=== PATIENT | female | born 1975 | race Caucasian/White ===

== ENCOUNTER 2016-09-04 12:31 | Emergency (ER) | payer OTHER ==
[~2016-09-04] VITALS: Ht 160 cm; Wt 108.9 kg
[~2016-09-04 12:31] MED LIST: ALBU0.63 NEB; CARV3.122 PO; CYCL1DRO EACHEYE; DICL25CA PO; DULO60CA6 PO; FLUT12AE IH; LORA10TA3 PO; MECL25TA3 PO; MELO-150 PO; METH4TAB6 PO; MONT10TA9 PO; OMEP40CA5 PO; ONDA4TAB12 PO; PRED-299 PO; PREG100C PO; SPIR50TA2 PO; SUCR1TAB PO; TOPI50TA4 PO; TRAZ300T2 PO
[2016-09-04 12:48] VITALS: BP 133/83
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
[2016-09-04] MEDS ORDERED: CYCL10TA2 PO (14:15)
== END 2016-09-04 14:37 | disposition home or self-care (01) ==
LOC: ER 12:31
DX: S16.1XXA Strain of muscle, fascia and tendon at neck level, initial encounter (principal); J45.909 Unspecified asthma, uncomplicated; M79.7 Fibromyalgia; G47.00 Insomnia, unspecified; G47.30 Sleep apnea, unspecified; Z88.2 Allergy status to sulfonamides; Z91.041 Radiographic dye allergy status; V89.2XXA Person injured in unspecified motor-vehicle accident, traffic, initial encounter; Y92.413 State road as the place of occurrence of the external cause; Y93.89 Activity, other specified; Y99.8 Other external cause status
CPT/HCPCS: 72125; 99284-25

== ENCOUNTER → 2018-02-27 | Outpatient (CLI) | payer OTHER ==
[~2018-02-27] MED LIST changes: +CYCL10TA2 PO; -MELO-150 PO; +MELO15TA23 PO; -SPIR50TA2 PO; +SPIR50TA4 PO; -TOPI50TA4 PO; +TOPI50TA8 PO
--- NOTE | 2018-02-27 08:59 | KCIC ---
MRI Cervical Spine Without Contrast History: Cervicalgia, neck and body aches for years Technique: Multiplanar, multi sequential noncontrast MR imaging was performed of the cervical spine. Comparison: None Findings: Cervical vertebral body stature and AP alignment are maintained. Cervical cord caliber is within normal limits without focal signal abnormality. Intervertebral disc spaces are overall adequate, very mild disc desiccation such as C3-4 and C4-C5. There is no significant marrow edema. There is no significant abnormality of the cervical medullary junction. There is straightening of the more superior cervical spine. There is a small focus of nonspecific marrow signal abnormality of the clivus although this may be due to more prominent vessel. C2-C3: Neural foramina and spinal canal are adequate. C3-C4: Neural foramina and spinal canal are adequate. C4-C5: Spinal canal and neural foramina are adequate. There is mild facet degenerative change. C5-C6: Spinal canal and the neural foramina are adequate. There is mild to moderate facet hypertrophic change bilaterally. C6-C7: There is mild facet hypertrophic change. Neural foramina and spinal canal are adequate. C7-T1: Neural foramina and spinal canal are adequate. Impression: 1. There is no cervical spinal stenosis or neural foramina compromise. There is multilevel facet degenerative change. Electronically signed by: Phillip Allen MD (02/27/2018 8:56 AM) [facility]
== END | disposition home or self-care (01) ==
LOC: KCIC MRI 07:44
PROVIDERS: ATTEND Physician Assistant Medical
DX: M47.892 Other spondylosis, cervical region (principal); J45.909 Unspecified asthma, uncomplicated; Z68.42 Body mass index [BMI] 45.0-49.9, adult; Z90.710 Acquired absence of both cervix and uterus; Z88.2 Allergy status to sulfonamides; Z82.49 Family history of ischemic heart disease and other diseases of the circulatory system; Z80.0 Family history of malignant neoplasm of digestive organs; Z80.3 Family history of malignant neoplasm of breast
CPT/HCPCS: 72141

== ENCOUNTER → 2018-03-02 | Outpatient (CLI) | payer OTHER ==
--- NOTE | 2018-03-03 10:45 | SLEEP ---
DATE OF STUDY: 03/02/2018 ATTENDING PHYSICIAN: Dr. David Oswald. The patient is a 42-year-old who weighs 230 pounds with a BMI of 40.7. The patient's [place] score was 24 suggesting severe subjective hypersomnia. The patient underwent home sleep study performed by [facility]. Total recording time was 502 minutes. During the night of study, the patient had 25 obstructive apneas, no central or mixed apneas and 7 hypopneas. The patient's apnea-hypopnea index with entire night was 3.8 per hour with a supine index of 5.5 per hour. EKG monitoring revealed mean heart rate of 58 beats per minute, no arrhythmias observed. Oximetry study revealed an average oxygen saturation of 95% with the lowest of 83%, which could be an artifact. Only 0.1 minute were spent in oxygen saturation of less than 85% and only 0.3 minutes with oxygen saturation of less than 90%. IMPRESSION: 1. No clinically significant sleep disordered breathing. The patient's AHI for the entire night was 3.8 per hour. 2. No clinically significant nocturnal hypoxia. RECOMMENDATIONS: 1. The patient's complain of severe subjective hypersomnia is out of proportion to the polysomnographic findings There was no evidence of sleep disordered breathing. Consider other etiologies of hypersomnia such as narcolepsy or idiopathic hypersomnia and if clinically indicated, consider doing multiple sleep latency tests. 2. Weight loss is advised. 3. Avoid KEY ENTRY OPERATOR depressants. 4. Caution regarding driving until the patient's hypersomnia is resolved with the above recommendations. TROY MENDIETA MD DR: ASA/jamie JOB#: [id number] / [id number] MARGARET
== END | disposition home or self-care (01) ==
LOC: RT 07:10
PROVIDERS: ATTEND Internal Medicine Pulmonary Disease
DX: G47.33 Obstructive sleep apnea (adult) (pediatric) (principal); J45.909 Unspecified asthma, uncomplicated; Z90.710 Acquired absence of both cervix and uterus; Z68.42 Body mass index [BMI] 45.0-49.9, adult; Z88.2 Allergy status to sulfonamides; Z82.49 Family history of ischemic heart disease and other diseases of the circulatory system; Z91.041 Radiographic dye allergy status; Z80.0 Family history of malignant neoplasm of digestive organs; Z80.3 Family history of malignant neoplasm of breast
CPT/HCPCS: G0399

== ENCOUNTER → 2019-04-23 | Outpatient (CLI) | payer MEDICAID, OTHER ==
[~2019-04-23] MED LIST changes: +CARV3.1210 PO; -CARV3.122 PO; +MONT10TA49 PO; -MONT10TA9 PO; +OMEP40CA45 PO; -OMEP40CA5 PO
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
== END | disposition home or self-care (01) ==
LOC: MRI 10:00
PROVIDERS: ATTEND Orthopaedic Surgery Sports Medicine
DX: M22.42 Chondromalacia patellae, left knee (principal); R06.00 Dyspnea, unspecified
CPT/HCPCS: 73721

== ENCOUNTER 2019-05-04 17:39 | Inpatient (IN) | payer MEDICAID ==
[~2019-05-04] VITALS: Ht 160 cm; Wt 106.8 kg
[2019-05-04 20:40] VITALS: BP 140/82
--- NOTE | 2019-05-04 21:18 | NUR ---
pt arrived to room 207 per ems cart. Pt assisted to bed with standby assist. Pt vs obtained and stable heart monitor applied to pt.Assessment completed vss poc explained will resume care and continue to monitor pt call light in reach will resume care. Pt reminded to call prior to getting oob. Call placed to Dr. Bermeo for further admit orders.
[2019-05-04] MEDS ORDERED: TIZA4TAB2 PO (21:32)
--- NOTE | 2019-05-04 21:42 | NUR ---
returned call orders received.
[2019-05-04] MEDS ORDERED: MORPHINE SULFATE 2 MG/ML VIAL. IV PRN (21:45)
[2019-05-04] MEDS ORDERED: ACETAMINOPHEN 325 MG TABLET. PO PRN (21:45)
[2019-05-04] MEDS ORDERED: diphenhydrAMINE HCL 25 MG CAPSULE PO PRN (21:45)
[2019-05-04] MEDS ORDERED: HYDROcodone/APAP 5/325MG 1 TAB TABLET PO PRN (21:45)
[2019-05-04] MEDS ORDERED: ALBUTEROL SULFATE 2.5 MG/3 ML NEBU. NEB PRN (22:30)
[2019-05-04] MEDS ORDERED: MECLIZINE HCL 12.5 MG TABLET. PO PRN (22:30)
[2019-05-04] MEDS: PANTOPRAZOLE 40 MG TABLET.DR. PO SCH (22:41)
[2019-05-04] MEDS: TOPIRAMATE 25 MG TABLET. PO SCH (22:41)
[2019-05-04] MEDS: CYCLOBENZAPRINE 10 MG TABLET. PO SCH (22:41)
[2019-05-04] MEDS: IV NORMAL SALINE 1000ML BAG 1,000 ML IV SCH (22:42)
[2019-05-04] MEDS: DICLOFENAC SODIUM 25 MG TABLET.DR PO SCH (22:42)
[2019-05-04] MEDS: PREGABALIN 50 MG CAPSULE PO SCH (22:42)
[2019-05-04] MEDS: MONTELUKAST SODIUM 10 MG TABLET. PO SCH (22:42)
[2019-05-04 23:51] VITALS: BP 120/56
[2019-05-05] VITALS (8 sets, daily range): BP systolic 103–145; BP diastolic 62–92
[2019-05-05 04:35] LABS: HEMOGLOBIN 11.8 g/dL (12.0-15.5); WHITE BLOOD COUNT 4.8 x10^3/uL (4.0-11.0)
[2019-05-05 04:41] LABS: PROTHROMBIN TIME PATIENT 13.2 SEC (11.7-14.0)
[2019-05-05 04:54] LABS: CALCIUM 8.2 mg/dL (8.5-10.1); CREATININE 0.6 mg/dL (0.6-1.0); GFR 110.2; MAGNESIUM 1.9 mg/dL (1.8-2.4); POTASSIUM 3.6 mmol/L (3.5-5.1)
[2019-05-05] MEDS: IV NORMAL SALINE 1000ML BAG 1,000 ML IV SCH ×2 (08:00→17:14)
--- NOTE | 2019-05-05 08:03 | PDOC1 ---
History and Physical Date of Admission Date of Admission DATE: 05/05/19 TIME: 08:01 Identification/Chief Complaint Chief Complaint Dizziness Source Source: Chart review, Patient History of Present Illness History of Present Illness Ms Whitman is a 43-year-old female w/ PMHx Fibromyalgia?, rosacea, valvular heart disease and tachyarrhythmia who presents with dizziness and lightheadedness while at work. 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 She felt tingling all extremities nauseated and as though she would pass out. Symptoms lasted upwards of an hour prior to contacting EMS. On EMS arrival, the patient was noted to be bradycardic with heart rate the mid 40s. Patient states she had a similar episode 2 days ago which lasted proximally 1 hour. Patient did not seek medical attention at that time. On ED arrival, the patient's heart rate and cerebral ranging from the 30s to the 90s. Patient's currently on low dose of Coreg which she is been on for approximately the past 2 years. No recent illnesses. Denies fever chills, chest pain, abdominal pain. No vomiting or diarrhea. 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 EKG: Sinus bradycardia, rate 50s. Chest x-ray: No acute cardiopulmonary disease Past Medical History Cardiovascular: Other Pulmonary: Asthma, Other GI: Other Heme/Onc: No pertinent hx Hepatobiliary: No pertinent hx Psych: No pertinent hx Musculoskeletal: No pain, Other Rheumatologic: Fibromyalgia Infectious disease: No pertinent hx Renal/: No pertinent hx Endocrine: No pertinent hx Past Surgical History Past Surgical History: , Hysterectomy, Other Family History Family History: Coronary Artery Disease Social History Smoke: No ALCOHOL: none Drugs: None Current Medications Current Medications Current Medications Sodium Chloride 1,000 ml @ 100 mls/hr Q10H IV Last administered on 05/04/19at 22:42; Start 05/04/19 at 22:00 Acetaminophen (Tylenol) 650 mg PRN Q6HRS PRN PO MILD PAIN 1-3; Start 05/04/19 at 21:45 Morphine Sulfate (Morphine Sulfate) 2 mg PRN Q2HR PRN IV SEVERE PAIN 7-10; Start 05/04/19 at 21:45 Acetaminophen/ Hydrocodone Bitart (Lortab 5/325) 1 tab PRN Q6HRS PRN PO MODERATE PAIN 4-6; Start 05/04/19 at 21:45 Diphenhydramine HCl (Benadryl) 25 mg PRN QHS PRN PO INSOMNIA; Start 05/04/19 at 21:45 Cyclobenzaprine HCl (Flexeril) 10 mg TID PO Last administered on 05/04/19at 22:41; Start 05/04/19 at 23:00 Cyclosporine (Restasis) 1 drop BID OU ; Start 05/05/19 at 09:00 Montelukast Sodium (Singulair) 10 mg HS PO Last administered on 05/04/19at 22:42; Start 05/04/19 at 23:00 Sucralfate (Carafate) 1 gm BID PO ; Start 05/05/19 at 09:00 Albuterol Sulfate (Ventolin Neb Soln) 2.5 mg PRN Q4HRS PRN NEB SHORTNESS OF BREATH; Start 05/04/19 at 22:30 Diclofenac Sodium (Voltaren) 25 mg BID PO Last administered on 05/04/19at 22:42; Start 05/04/19 at 23:00 Duloxetine HCl (Cymbalta) 60 mg BID PO ; Start 05/05/19 at 09:00 Budesonide (Pulmicort) 0.5 mg RTBID NEB ; Start 05/05/19 at 08:00 Cetirizine HCl (ZyrTEC) 10 mg DAILY PO ; Start 05/05/19 at 09:00 Meclizine HCl (Antivert) 25 mg PRN TID PRN PO DIZZINESS; Start 05/04/19 at 22:30 Pantoprazole Sodium (Protonix) 40 mg QHS PO Last administered on 05/04/19at 22:41; Start 05/04/19 at 23:00 Pregabalin (Lyrica) 100 mg TID PO Last administered on 05/04/19at 22:42; Start 05/04/19 at 23:00 Spironolactone (Aldactone) 50 mg DAILY PO ; Start 05/05/19 at 09:00 Topiramate (Topamax) 50 mg BID PO Last administered on 05/04/19at 22:41; Start 10/29/19 at 23:00 Potassium Chloride (Klor-Con) 40 meq 1X ONCE PO ; Start 05/05/19 at 08:00; Stop 05/05/19 at 08:01; Status UNV Magnesium Sulfate/ Dextrose 100 ml @ 100 mls/hr 1X ONCE IV ; Start 05/05/19 at 08:00; Stop 05/05/19 at 08:59; Status UNV Active Scripts Active Cyclobenzaprine Hcl 10 Mg Tablet 10 Mg PO TID Reported Tizanidine Hcl 4 Mg Tablet 2 Tab PO PRN Q8HRS PRN Omeprazole 40 Mg Capsule.dr 1 Cap PO HS Montelukast Sodium Tablet (Montelukast Sodium) 10 Mg Tablet 1 Tab PO HS Topiramate 50 Mg Tablet 1 Tab PO BID Trazodone Hcl 300 Mg Tablet 1 Tab PO QHS Sucralfate 1 Gm Tablet 1 Gm PO BID Albuterol Sulfate Neb Soln (Albuterol Sulfate) 0.63 Mg/3 Ml Vial.neb 0.63 Mg NEB PRN Q4HRS PRN Carvedilol (Carvedilol) 3.125 Mg Tablet 1 Tab PO BID Lyrica (Pregabalin) 100 Mg Capsule 1 Cap PO TID Loratadine 10 Mg Tablet 1 Tab PO DAILY Flovent 110MCG Hfa (Fluticasone Propionate) 12 Gm Aer.w.adap 2 Puff IH BID Zipsor (Diclofenac Potassium) 25 Mg Capsule 25 Mg PO BID Restasis (Cyclosporine) 1 Each Droperette 1 Drop EACHEYE BID Cymbalta (Duloxetine Hcl) 60 Mg Capsule. 1 Cap PO BID Meclizine Hcl 25 Mg Tablet 1 Tab PO PRN TID Ondansetron Odt (Ondansetron) 4 Mg Tab.rapdis 1 Tab PO PRN Q6HRS PRN Meloxicam 15 Mg Tablet 1 Tab PO DAILY Spironolactone 50 Mg Tablet 1 Tab PO DAILY Allergies Allergies: Coded Allergies: Iodinated Contrast Media (Verified Allergy, Intermediate, "turned red all over", 01/30/16) Sulfa (Sulfonamide Antibiotics) (Verified Allergy, Intermediate, 01/30/16) fexofenadine (Verified Allergy, Intermediate, 05/04/19) ROS General: YES: Fatigue, Malaise; No: Chills, Night Sweats, Appetite, Other PSYCHOLOGICAL ROS: YES: Anxiety; No: Behavioral Disorder, Concentration difficultie, Decreased libido, Depression, Disorientation, Hallucinations, Hostility, Irritablity, Memory difficulties, Mood Swings, Obsessive thoughts, Physical abuse, Sexual abuse, Sleep disturbances, Suicidal ideation, Other Eyes: No Blurry vision, No Decreased vision, No Double vision, No Dry eyes, No Excessive tearing, No Eye Pain, No Itchy Eyes, No Loss of vision, No Photophobia, No Scotomata, No Uses contacts, No Uses glasses, No Other HEENT: YES: Heacaches; No: Visual Changes, Hearing change, Nasal congestion, Nasal discharge, Oral lesions, Sinus pain, Sore Throat, Epistaxis, Sneezing, Snoring, Tinnitus, Vertigo, Vocal changes, Other ALLERGY AND IMMUNOLOGY: No: Hives, Insect Bite Sensitivity, Itchy/Watery Eyes, Nasal Congestion, Post Nasal Drip, Seasonal Allergies, Other Hematological and Lymphatic: No: Bleeding Problems, Blood Clots, Blood Transfusions, Brusing, Night Sweats, Pallor, Swollen Lymph Nodes, Other ENDOCRINE: No: Breast Changes, Galactorrhea, Hair Pattern Changes, Hot Flashes, Malaise/lethargy, Mood Swings, Palpitations, Polydipsia/polyuria, Skin Changes, Temperature Intolerance, Unexpected Weight Changes, Other Breast: No New/Changing Breast Lumps, No Nipple changes, No Nipple discharge, No Other Respiratory: No: Cough, Hemoptysis, Orthopnea, Pleuritic Pain, Shortness of breath, SOB with excertion, Sputum Changes, Stridor, Tachypnea, Wheezing, Other Cardiovascular: yes Chest Pain, yes Palpitations; No Orthopnea, No Paroxysmal Noc. Dyspnea, No Edema, No Lt Headedness, No Other Gastrointestinal: No Nausea, No Vomiting, No Abdominal Pain, No Diarrhea, No Constipation, No Melena, No Hematochezia, No Other Genitourinary: YES Hematuria; No Dysuria, No Frequency, No Incontinence, No Retention, No Discharge, No Urgency, No Pain, No Flank Pain, No Other, No , No , No , No , No , No , No Musculoskeletal: Yes Joint Stiffness, Yes Joint Swelling, Yes Muscle Pain, Yes Muscular Weakness; No Gait Disturbance, No Joint Pain, No Pain In:, No Swelling In:, No Other Neurological: No Behavorial Changes, No Bowel/Bladder ControlChng, No Confusion, No Dizziness, No Gait Disturbance, No Headaches, No Impaired Coord/balance, No Memory Loss, No Numbness/Tingling, No Seizures, No Speech Problems, No Tremors, No Visual Changes, No Weakness, No Other Skin: Yes Rash; No Dry Skin, No Eczema, No Hair Changes, No Lumps, No Mole Changes, No Mottling, No Nail Changes, No Pruritus, No Skin Lesion Changes, No Other, No Acne Physical Exam General: Alert, Oriented X3, Cooperative, No acute distress HEENT: Atraumatic, PERRLA, EOMI, Mucous membr. moist/pink, Other (Malar rash) Lungs: Clear to auscultation, Normal air movement Heart: other (Jose) Abdomen: Normal bowel sounds, Soft, No tenderness, No hepatosplenomegaly, No masses Rectal Exam: not examined Extremities: No clubbing, No cyanosis, No edema, Normal pulses, No tenderness/swelling Skin: No breakdown, No significant lesion Neuro: Normal gait, Normal speech, Strength at 5/5 X4 ext, Normal tone, Sensation intact, Cranial nerves 3-12 NL, Reflexes 2+ Psych/Mental Status: Mental status NL, Mood NL Vitals Vitals Vital Signs Date Time Temp Pulse Resp B/P (MAP) Pulse Ox O2 Delivery O2 Flow Rate FiO2 05/05/19 03:23 98.3 67 16 103/62 (76) 97 Room Air 98.3 Labs Labs Laboratory Tests Test 05/05/19 03:35 White Blood Count 4.8 x10^3/uL (4.0-11.0) Hemoglobin 11.8 g/dL (12.0-15.5) Hematocrit 36.0 % (36.0-47.0) Platelet Count 167 x10^3/uL (140-400) Prothrombin Time 13.2 SEC (11.7-14.0) Prothromb Time International Ratio 1.0 (0.8-1.1) Sodium Level 145 mmol/L (136-145) Potassium Level 3.6 mmol/L (3.5-5.1) Chloride Level 112 mmol/L (98-107) Carbon Dioxide Level 23 mmol/L (21-32) Anion Gap 10 (6-14) Blood Urea Nitrogen 16 mg/dL (7-20) Creatinine 0.6 mg/dL (0.6-1.0) Estimated GFR (Cockcroft-Gault) 110.2 Glucose Level 77 mg/dL (70-99) Calcium Level 8.2 mg/dL (8.5-10.1) Magnesium Level 1.9 mg/dL (1.8-2.4) Thyroid Stimulating Hormone (TSH) 2.454 uIU/mL (0.358-3.74) Laboratory Tests Test 05/05/19 03:35 White Blood Count 4.8 x10^3/uL (4.0-11.0) Hemoglobin 11.8 g/dL (12.0-15.5) Hematocrit 36.0 % (36.0-47.0) Platelet Count 167 x10^3/uL (140-400) Prothrombin Time 13.2 SEC (11.7-14.0) Prothromb Time International Ratio 1.0 (0.8-1.1) Sodium Level 145 mmol/L (136-145) Potassium Level 3.6 mmol/L (3.5-5.1) Chloride Level 112 mmol/L (98-107) Carbon Dioxide Level 23 mmol/L (21-32) Anion Gap 10 (6-14) Blood Urea Nitrogen 16 mg/dL (7-20) Creatinine 0.6 mg/dL (0.6-1.0) Estimated GFR (Cockcroft-Gault) 110.2 Glucose Level 77 mg/dL (70-99) Calcium Level 8.2 mg/dL (8.5-10.1) Magnesium Level 1.9 mg/dL (1.8-2.4) Thyroid Stimulating Hormone (TSH) 2.454 uIU/mL (0.358-3.74) VTE Prophylaxis Ordered VTE Prophylaxis Devices: No VTE Pharmacological Prophylaxi: Yes Assessment/Plan Assessment/Plan A/P: Symptomatic bradycardia - reason for admission. Holding her coreg. Will monitor on telemetry. Echo. Cardiology following Palpitations - pre-existing Dizziness - likely multifactorial from medications as well as bradycardia Presyncope - Multifactorial, possibly 2/2 bradycardia Prolonged QTc 514 - will keep on telemetry, avoid QT prolonging agents HTN - controlled Hx of Migraine Chest pain - unlikely ACS. Recent Coronary CT unremarkable. ?Fibromyalgia - on medications with no improvement. 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 Her rash is impressive as well as her other symptoms, based on age should have testing to r/o SLE Weakness - will ambulate FEN - Full liquid diet PPX - lovenox FULL CODE Dispo - inpatient BAUDILIO MCCONNELL MD May 05, 2019 08:03
[2019-05-05] MEDS: cycloSPORINE 0.05% OPHTH DROPERETTE. OU SCH ×2 (08:31→21:00)
[2019-05-05] MEDS ORDERED: POTASSIUM CHLORIDE 20 MEQ TABLET.ER. PO ONE (09:00)
[2019-05-05] MEDS ORDERED: MAGNESIUM SULFATE 1GM 100 ML IV ONE (09:00)
[2019-05-05] MEDS: DULoxetine HCL 30 MG CAPSULE.DR PO SCH ×2 (09:28→22:17)
[2019-05-05] MEDS: PREGABALIN 50 MG CAPSULE PO SCH ×3 (09:28→22:18)
[2019-05-05] MEDS: DICLOFENAC SODIUM 25 MG TABLET.DR PO SCH ×2 (09:28→22:17)
[2019-05-05] MEDS: SPIRONOLACTONE 25 MG TABLET PO SCH (09:28)
[2019-05-05] MEDS: CYCLOBENZAPRINE 10 MG TABLET. PO SCH ×3 (09:28→21:00)
[2019-05-05] MEDS: SUCRALFATE 1 GM TABLET. PO SCH ×2 (09:28→22:16)
[2019-05-05] MEDS: TOPIRAMATE 25 MG TABLET. PO SCH ×2 (09:28→22:17)
[2019-05-05] MEDS: CETIRIZINE HCL 10 MG TABLET. PO SCH (09:28)
--- NOTE | 2019-05-05 10:51 | PDOC2 ---
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 This occurred Friday and yesterday. Reports that she was standing up when this happened. Reports also of chest pressure, nausea and diaphoresis. Also with abdominal pain and tingling to her arms and legs. Reports that her firbormyalgia has not been controlled. She had coronary CT scan at yesterday which was unremarkable. She does take coreg and her HR was noted to be in the 40s when she was picked up by EMS. Initially she was at [facility] and transferred to [facility]. Also had complains of abdominal pain but currently no tenderness and no further symptoms since transferred. PAST MEDICAL HISTORY Past Medical History Cardiovascular: bradycardia Pulmonary: Asthma, COPD, [place] Neuro: Migraine GI: Other (morbid obesity) Heme/Onc: No pertinent hx Hepatobiliary: No pertinent hx Psych: No pertinent hx Musculoskeletal: No pain, Other (carpal tunnel) Rheumatologic: Fibromyalgia Infectious disease: No pertinent hx ENT: Sincusitis, Allergic Rhinitis Renal/: No pertinent hx Endocrine: No pertinent hx Dermatology: No pertinent hx PAST SURGICAL HISTORY Past Surgical History , Hysterectomy, Other (gastric bypass) FAMILY HISTORY Family History Coronary Artery Disease (father with MN in his 60s) SOCIAL HISTORY Smoke: No ALCOHOL: none Drugs: None Lives: with Family CURRENT MEDICATIONS CURRENT MEDICATIONS Current Medications Medications (Trade) Dose Ordered Sig/Marlyn Route PRN Reason Start Time Stop Time Status Last Admin Dose Admin Sodium Chloride 1,000 ml @ 100 mls/hr Q10H IV 05/04/19 22:00 05/05/19 08:00 Morphine Sulfate (Morphine Sulfate) 2 mg PRN Q2HR PRN IV SEVERE PAIN 7-10 05/04/19 21:45 05/05/19 08:01 Cyclobenzaprine HCl (Flexeril) 10 mg TID PO 05/04/19 23:00 05/05/19 09:28 Montelukast Sodium (Singulair) 10 mg HS PO 05/04/19 23:00 05/04/19 22:42 Sucralfate (Carafate) 1 gm BID PO 05/05/19 09:00 05/05/19 09:28 Diclofenac Sodium (Voltaren) 25 mg BID PO 05/04/19 23:00 05/05/19 09:28 Duloxetine HCl (Cymbalta) 60 mg BID PO 05/05/19 09:00 05/05/19 09:28 Cetirizine HCl (ZyrTEC) 10 mg DAILY PO 05/05/19 09:00 05/05/19 09:28 Pantoprazole Sodium (Protonix) 40 mg QHS PO 05/04/19 23:00 05/04/19 22:41 Pregabalin (Lyrica) 100 mg TID PO 05/04/19 23:00 05/05/19 09:28 Spironolactone (Aldactone) 50 mg DAILY PO 05/05/19 09:00 05/05/19 09:28 Topiramate (Topamax) 50 mg BID PO 05/04/19 23:00 05/05/19 09:28 Potassium Chloride (Klor-Con) 40 meq 1X ONCE PO 05/05/19 09:00 05/05/19 09:01 DC 05/05/19 08:30 Magnesium Sulfate/ Dextrose 100 ml @ 100 mls/hr 1X ONCE IV 05/05/19 09:00 05/05/19 09:59 DC 05/05/19 08:30 ALLERGIES ALLERGIES: Coded Allergies: Iodinated Contrast Media (Verified Allergy, Intermediate, "turned red all over", 01/30/16) Sulfa (Sulfonamide Antibiotics) (Verified Allergy, Intermediate, 01/30/16) fexofenadine (Verified Allergy, Intermediate, 05/04/19) ROS Review of System 14 point ROS evaluated with pertinent positives noted per HPI PHYSICAL EXAM General: Alert, Oriented X3, Cooperative, No acute distress HEENT: Atraumatic, Mucous membr. moist/pink Lungs: Clear to auscultation, Normal air movement Heart: Regular rate (SR), Normal S1, Normal S2, No murmurs Abdomen: Soft, No tenderness Extremities: No cyanosis, No edema Skin: No breakdown, No significant lesion Neuro: Normal speech, Sensation intact Psych/Mental Status: Mental status NL, Mood NL MUSCULOSKELETAL: Osteoarthritic changes both hands VITALS/I&O VITALS/I&O: Vital Signs Date Time Temp Pulse Resp B/P (MAP) Pulse Ox O2 Delivery O2 Flow Rate FiO2 05/05/19 08:01 Room Air 05/05/19 07:00 98.1 57 18 145/66 (92) 98 98.1 I & O 05/04/19 05/04/19 05/05/19 15:00 23:00 07:00 Intake Total 0 ml 100 ml Output Total 325 ml Balance -325 ml 100 ml LABS Lab: Laboratory Tests Test 05/05/19 03:35 White Blood Count 4.8 x10^3/uL (4.0-11.0) Hemoglobin 11.8 g/dL (12.0-15.5) L Hematocrit 36.0 % (36.0-47.0) Platelet Count 167 x10^3/uL (140-400) Prothrombin Time 13.2 SEC (11.7-14.0) Prothrombin Time INR 1.0 (0.8-1.1) Sodium Level 145 mmol/L (136-145) Potassium Level 3.6 mmol/L (3.5-5.1) Chloride Level 112 mmol/L (98-107) H Carbon Dioxide Level 23 mmol/L (21-32) Anion Gap 10 (6-14) Blood Urea Nitrogen 16 mg/dL (7-20) Creatinine 0.6 mg/dL (0.6-1.0) Estimated GFR (Cockcroft-Gault) 110.2 Glucose Level 77 mg/dL (70-99) Calcium Level 8.2 mg/dL (8.5-10.1) L Magnesium Level 1.9 mg/dL (1.8-2.4) Thyroid Stimulating Hormone (TSH) 2.454 uIU/mL (0.358-3.74) Laboratory Tests 05/05/19 03:35 Laboratory Tests 05/05/19 03:[address] CORONARY CTA W CONTRAST 05/03/2019 INDICATIONS: 43-year-old female with past medical history significant for asthma and hypertension was been having left upper extremity pain. Patient underwent coronary CT angiogram for evaluation of possible coronary artery disease. PROCEDURAL DETAILS: 128 slice, dual source, computed tomography of the heart, without contrast material followed by contrast material and further sections, including cardiac gating and 3-D image postprocessing; cardiac structure and morphology, and computed tomographic angiography of the coronary arteries. FINDINGS: General Cardiac Morphology and Structure: The overall cardiac situs is normal. The diaphragms have normal inspiratory position. The pericardium is of normal thickness. There is no pericardial effusion present. There is epicardial fat present. The aortic valve is trileaflet valve. Aortic valve does not have any significant calcification.The mitral valve is structurally normal. Mitral leaflets appears to be normal without any significant thickening. The tricuspid valve and the pulmonic valve are not well visualized. The left ventricle has normal compaction pattern. The left ventricle is normal in size. There is no evidence of left ventricular hypertrophy. The interventricular septum measures 8 mm. The lateral wall measures 10 mm. The right ventricle also appears to be normal in size without right ventricular hypertrophy. Coronary Angiography: Left main: The left main coronary artery arises normally from the left coronary cusp. Left main coronary artery is a large caliber artery which further bifurcates into left anterior descending artery and left circumflex artery. Left main coronary artery is free of any calcified or soft plaques. Left anterior descending: The left anterior descending artery is medium to large caliber vessel which at least give origin to 2 diagonal branches. The left anterior descending artery and diagonal arteries are free of any calcific or significant noncalcific plaquing. Left circumflex: Left circumflex coronary artery arises from left main coronary artery. It is small caliber vessel. It gives origin to a tiny proximal first OM branch, before giving off a second small obtuse marginal branch and then terminating in the lateral wall. It is nondominant. There is no calcific plaquing or definite soft plaquing evident. Right coronary artery: The right coronary arteries originate from right coronary cusp and its free of any calcific plaques. The patient has a right dominant coronary system. It gives origin to PDA and PLV branches. The PDA branch is not well visualized but appears to be small in caliber. The PLV branch is medium in caliber and appears free of any soft plaquing or calcification. Atrial and Pulmonary Venous Anatomy: The interatrial septum is intact. There is no evidence of left atrial appendage thrombus. Visually, The right atrium and left atrium size is within normal limits. There are 2 right and 2 left-sided pulmonary veins draining into left atrium. Aorta and Pulmonary Arteries: The visualized portions of the thoracic aorta are without evidence of aneurysm, coarctation, or dissection. The ascending aorta measures 31 mm. The descending thoracic aorta measures 21 mm. There is no clinically significant calcific plaques in the visualized portion of ascending and descending thoracic aorta. The main pulmonary artery measures 22 mm. There are no filling defects in the proximal portions of the pulmonary arteries to suggest pulmonary embolism. Noncardiac Findings: Noncardiac findings are reported separately under the "Limited CT Chest Report" of the same date. IMPRESSION 1. Right dominant coronary artery circulation. Right and left coronary artery originates from their respective coronary cusps. Although the PDA branch of the RCA is small in caliber and not well visualized, no calcific or definite noncalcific plaquing is noted in any coronary arteries or its branches. 2. 2 right-sided and 2 left-sided pulmonary veins draining into left atrium. 3. Cardiac chambers size appears to be within normal limits. 4. No evidence of left atrial appendage thrombus. 5. Visualized portion of ascending and descending aorta are without any significant calcific plaquing, dissection or aneurysm. 6. Main pulmonary artery and its proximal portions are within normal limits without any evidence of filling defect suggestive of pulmonary embolism. ECHOCARDIOGRAM ECHOCARDIOGRAM <Conclusion> The left ventricle is normal size. Left ventricle systolic function is normal. The Ejection Fraction is 50-55%. There is no significant aortic valvular stenosis. Doppler and Color Flow revealed no significant aortic regurgitation. Doppler and Color Flow revealed trace mitral valve regurgitation. Doppler and Color Flow revealed mild tricuspid regurgitation. The PA pressure was estimated at 19 mmHg. DATE: 01/31/16 1722 ASSESSMENT/PLAN ASSESSMENT/PLAN 1. Presyncope: Multifactorial 2. Sinus bradycardia: Coreg contirbuting 3. Prolonged QTc: 514. 4. HTN: controlled 5. Hx of Migraine 5. Chest pain: doubt ACS. Recent Coronary CT unremarkable as noted above. This is likely from her uncontrolled fibromyalgia Recommendations. 1. Potentially her dizziness could be related to combination of her fibromyalgia medications namely neuronting, topiramate, norco, cymbalta, xanax 2. Consider discontinuing low dose celexa defer to PCP. Will stop coreg 3. Will repeat EKG. check orthostasis. Encouraged hydration adequacy. Will am bulate and note HR response 4. If no recent MCOT then will consider 5. TTE DENNISE TOURE MD 05/05/19 1708: CARDIAC CONSULT ASSESSMENT/PLAN ASSESSMENT/PLAN Pt. seen and examined. Agree with above MANAGER INCOME TAX note. Based on her presentation, EKG, exam and telemetry, no clear indication for pacemaker Stop coreg, consider decreasing multiple pain/anxiolytic meds and reassess on an outpt basis with an event monitor. Normal heart rate response. Supportive care. Echo wnl today. Ok to DC from CV standpoint SAMIRA CORDERO APRN May 05, 2019 10:51 DENNISE TOURE MD May 05, 2019 17:08
--- NOTE | 2019-05-05 11:25 | NUR ---
SS following for discharge planning. SS reviewed pt chart. Pt is from home and is currently on room air. SS will continue to follow for discharge planning.
--- NOTE | 2019-05-05 14:18 | EKG ---
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
--- NOTE | 2019-05-05 14:22 | CARD ---
MR#: [id number] Date of Study: 05/05/2019 Ordering Physician: SAMIRA CORDERO, Referring Physician: SAMIRA CORDERO, Tech: Ashley Aaron APPROVED REPORT EXAM: Two-dimensional and M-mode echocardiogram with Doppler and color Doppler. Other Information Quality : AverageHR: 56bpm Technically limited study due to body habitus. INDICATION Bradycardia 2D DIMENSIONS Left Atrium(2D)3.7 (1.6-4.0cm)IVSd1.1 (0.7-1.1cm) Aortic Root(2D)2.9 (2.0-3.7cm)LVDd4.8 (3.9-5.9cm) LVOT Diameter2.2 (1.8-2.4cm)PWd0.9 (0.7-1.1cm) LVDs2.7 (2.5-4.0cm)FS (%) 43.9 % SV81.1 mlLVEF(%)75.0 (>50%) Aortic Valve AoV Peak Nolan.138.4cm/sAoV VTI31.7cm AO Peak GR.7.7mmHgLVOT VTI 20.70cm AO Mean GR.4mmHg Mitral Valve MV E Diwbciji59.6cm/sMV DECEL [id number] MV A Gbvtxcjb51.5cm/sE/A Ratio1.4 TDI Lateral E' P. V11.65cm/sMedial E' P. V8.62cm/s E/Lateral E'5.9E/Medial E'8.0 Tricuspid Valve TR P. Xhouolvs846kg/sRAP [id number] TR Peak Gr.43oeBjVJSL73fwIz Pulmonary Vein S1 Qillepca19.3cm/sS2 Nocgwgpj62.91cm/s D2 Jdwpipjf42.9cm/sPVa [id number] LEFT VENTRICLE The left ventricle is normal size. There is borderline concentric left ventricular hypertrophy. The l eft ventricular systolic function is normal. The Ejection Fraction is 55-60%. There is normal LV segm ental wall motion. RIGHT VENTRICLE The right ventricle is normal size. There is normal right ventricular wall thickness. The right ventr icular systolic function is normal. ATRIA The left atrium size is normal. The right atrium size is normal. The interatrial septum is intact wit h no evidence for an atrial septal defect or patent foramen ovale as noted on 2-D or Doppler imaging. AORTIC VALVE The aortic valve is thickened but opens well. Doppler and Color Flow revealed no significant aortic r egurgitation. There is no significant aortic valvular stenosis. MITRAL VALVE The mitral valve is normal in structure and function. There is no evidence of mitral valve prolapse. There is no mitral valve stenosis. Doppler and Color Flow revealed no mitral valve regurgitation note d. TRICUSPID VALVE The tricuspid valve is normal in structure and function. Doppler and Color Flow revealed trace tricus pid regurgitation with an estimated PAP of 30 mmHg. There is no tricuspid valve stenosis. PULMONIC VALVE The pulmonary valve is normal in structure and function. Doppler and Color Flow revealed no pulmonic valvular regurgitation. GREAT VESSELS The aortic root is normal in size. The IVC is dilated. PERICARDIAL EFFUSION There is no evidence of significant pericardial effusion. Critical Notification Critical Value: No <Conclusion> The left ventricular systolic function is normal. The Ejection Fraction is 55-60%. There is normal LV segmental wall motion. Trace tricuspid regurgitation with an estimated PAP of 30 mmHg. There is no evidence of significant pericardial effusion. Signed by : Carl Erickson, Electronically Approved : 05/05/2019 14:22:09
[2019-05-05] MEDS: BUDESONIDE 0.5 MG/2 ML NEBU. NEB SCH (21:42)
[2019-05-05] MEDS: PANTOPRAZOLE 40 MG TABLET.DR. PO SCH (22:16)
[2019-05-05] MEDS: MONTELUKAST SODIUM 10 MG TABLET. PO SCH (22:19)
[2019-05-06 02:08] LABS: RHEUMATOID FACTOR <10.0 IU/mL (0.0-13.9)
[2019-05-06 02:55] VITALS: BP 123/80
[2019-05-06 07:00] VITALS: BP 140/84
[2019-05-06 07:36] LABS: CALCIUM 8.4 mg/dL (8.5-10.1); CREATININE 0.7 mg/dL (0.6-1.0); GFR 92.2
[2019-05-06] MEDS: BUDESONIDE 0.5 MG/2 ML NEBU. NEB SCH (08:10)
--- NOTE | 2019-05-06 08:16 | PDOC ---
PROGRESS NOTES Chief Complaint Chief Complaint A/P: Symptomatic bradycardia - reason for admission. Holding her coreg. Will monitor on telemetry. Echo. Cardiology following Palpitations - pre-existing Dizziness - likely multifactorial from medications as well as bradycardia Presyncope - Multifactorial, possibly 2/2 bradycardia Prolonged QTc 514 - will keep on telemetry, avoid QT prolonging agents HTN - controlled Hx of Migraine Chest pain - unlikely ACS. Recent Coronary CT unremarkable. ?Fibromyalgia - on medications with no improvement. 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 Her rash is impressive as well as her other symptoms, based on age should have testing to r/o SLE Weakness - will ambulate FEN - Full liquid diet PPX - lovenox FULL CODE Dispo - inpatient Echo - The left ventricular systolic function is normal. The Ejection Fraction is 55-60%. There is normal LV segmental wall motion. Trace tricuspid regurgitation with an estimated PAP of 30 mmHg. There is no evidence of significant pericardial effusion. History of Present Illness History of Present Illness Ms Whitman is a 43-year-old female w/ PMHx Fibromyalgia?, rosacea, valvular heart disease and tachyarrhythmia who presents with dizziness and lightheadedness while at work. 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 She felt tingling all extremities nauseated and as though she would pass out. Symptoms lasted upwards of an hour prior to contacting EMS. On EMS arrival, the patient was noted to be bradycardic with heart rate the mid 40s. Patient states she had a similar episode 2 days ago which lasted proximally 1 hour. Patient did not seek medical attention at that time. On ED arrival, the patient's heart rate and cerebral ranging from the 30s to the 90s. Patient's currently on low dose of Coreg which she is been on for approximately the past 2 years. No recent illnesses. Denies fever chills, chest pain, abdominal pain. No vomiting or diarrhea. 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 EKG: Sinus bradycardia, rate 50s. Chest x-ray: No acute cardiopulmonary disease Seen by cardiology, stopped her carvedilol and recommended to back off on lyrica, antihistamines, and muscle relaxants. After holding meds her HR normalized. She was able to ambulate well. Has plans for cardiac event monitor outpatient Vitals Vitals Vital Signs Date Time Temp Pulse Resp B/P (MAP) Pulse Ox O2 Delivery O2 Flow Rate FiO2 05/06/19 08:11 97 Room Air 05/06/19 02:55 97.9 58 18 123/80 (94) 97.9 Physical Exam General: Alert, Oriented X3, Cooperative, No acute distress Heart: Regular rate (SR), Normal S1, Normal S2, No murmurs Lungs: Clear Abdomen: Normal bowel sounds, Soft, No tenderness, No hepatosplenomegaly, No masses Extremities: No clubbing, No cyanosis, No edema, Normal pulses, No tenderness/swelling Skin: No breakdown, No significant lesion Labs LABS Laboratory Tests Test 05/05/19 15:20 05/06/19 06:25 Erythrocyte Sedimentation Rate 5 (0-25) C-Reactive Protein, Quantitative < 0.5 mg/L (0-3.3) Rheumatoid Factor <10.0 IU/mL (0.0-13.9) Sodium Level 141 mmol/L (136-145) Potassium Level 4.0 mmol/L (3.5-5.1) Chloride Level 108 mmol/L (98-107) Carbon Dioxide Level 24 mmol/L (21-32) Anion Gap 9 (6-14) Blood Urea Nitrogen 13 mg/dL (7-20) Creatinine 0.7 mg/dL (0.6-1.0) Estimated GFR (Cockcroft-Gault) 92.2 Glucose Level 81 mg/dL (70-99) Calcium Level 8.4 mg/dL (8.5-10.1) Magnesium Level 2.0 mg/dL (1.8-2.4) Assessment and Plan Assessmemt and Plan Problems Medical Problems: (1) Chest pain Status: Acute (2) Dizziness Status: Acute (3) Fibromyalgia Status: Chronic (4) HTN (hypertension) Status: Chronic (5) Palpitations Status: Acute (6) Pre-syncope Status: Acute (7) Symptomatic bradycardia Status: Acute (8) Weakness Status: Acute Comment Review of Relevant I have reviewed the following items june (where applicable) has been applied. Labs Laboratory Tests Test 05/05/19 03:35 05/05/19 15:20 05/06/19 06:25 White Blood Count 4.8 x10^3/uL (4.0-11.0) Hemoglobin 11.8 g/dL (12.0-15.5) Hematocrit 36.0 % (36.0-47.0) Platelet Count 167 x10^3/uL (140-400) Prothrombin Time 13.2 SEC (11.7-14.0) Prothromb Time International Ratio 1.0 (0.8-1.1) Sodium Level 145 mmol/L (136-145) 141 mmol/L (136-145) Potassium Level 3.6 mmol/L (3.5-5.1) 4.0 mmol/L (3.5-5.1) Chloride Level 112 mmol/L (98-107) 108 mmol/L (98-107) Carbon Dioxide Level 23 mmol/L (21-32) 24 mmol/L (21-32) Anion Gap 10 (6-14) 9 (6-14) Blood Urea Nitrogen 16 mg/dL (7-20) 13 mg/dL (7-20) Creatinine 0.6 mg/dL (0.6-1.0) 0.7 mg/dL (0.6-1.0) Estimated GFR (Cockcroft-Gault) 110.2 92.2 Glucose Level 77 mg/dL (70-99) 81 mg/dL (70-99) Calcium Level 8.2 mg/dL (8.5-10.1) 8.4 mg/dL (8.5-10.1) Magnesium Level 1.9 mg/dL (1.8-2.4) 2.0 mg/dL (1.8-2.4) Troponin I Quantitative < 0.017 ng/mL (0.000-0.055) Thyroid Stimulating Hormone (TSH) 2.454 uIU/mL (0.358-3.74) Erythrocyte Sedimentation Rate 5 (0-25) C-Reactive Protein, Quantitative < 0.5 mg/L (0-3.3) Rheumatoid Factor <10.0 IU/mL (0.0-13.9) Laboratory Tests Test 05/05/19 15:20 05/06/19 06:25 Erythrocyte Sedimentation Rate 5 (0-25) C-Reactive Protein, Quantitative < 0.5 mg/L (0-3.3) Rheumatoid Factor <10.0 IU/mL (0.0-13.9) Sodium Level 141 mmol/L (136-145) Potassium Level 4.0 mmol/L (3.5-5.1) Chloride Level 108 mmol/L (98-107) Carbon Dioxide Level 24 mmol/L (21-32) Anion Gap 9 (6-14) Blood Urea Nitrogen 13 mg/dL (7-20) Creatinine 0.7 mg/dL (0.6-1.0) Estimated GFR (Cockcroft-Gault) 92.2 Glucose Level 81 mg/dL (70-99) Calcium Level 8.4 mg/dL (8.5-10.1) Magnesium Level 2.0 mg/dL (1.8-2.4) Medications Current Medications Sodium Chloride 1,000 ml @ 100 mls/hr Q10H IV Last administered on 05/05/19at 08:00; Start 05/04/19 at 22:00; Stop 05/05/19 at 19:42; Status DC Acetaminophen (Tylenol) 650 mg PRN Q6HRS PRN PO MILD PAIN 1-3; Start 05/04/19 at 21:45 Morphine Sulfate (Morphine Sulfate) 2 mg PRN Q2HR PRN IV SEVERE PAIN 7-10 Last administered on 05/05/19at 08:01; Start 05/04/19 at 21:45 Acetaminophen/ Hydrocodone Bitart (Lortab 5/325) 1 tab PRN Q6HRS PRN PO MODERATE PAIN 4-6; Start 05/04/19 at 21:45 Diphenhydramine HCl (Benadryl) 25 mg PRN QHS PRN PO INSOMNIA; Start 05/04/19 at 21:45 Cyclobenzaprine HCl (Flexeril) 10 mg TID PO Last administered on 05/05/19at 14:09; Start 05/04/19 at 23:00 Cyclosporine (Restasis) 1 drop BID OU ; Start 05/05/19 at 09:00 Montelukast Sodium (Singulair) 10 mg HS PO Last administered on 05/05/19at 22:19; Start 05/04/19 at 23:00 Sucralfate (Carafate) 1 gm BID PO Last administered on 05/05/19at 22:16; Start 05/05/19 at 09:00 Albuterol Sulfate (Ventolin Neb Soln) 2.5 mg PRN Q4HRS PRN NEB SHORTNESS OF BREATH Last administered on 05/05/19 21:42; Start 05/04/19 at 22:30 Diclofenac Sodium (Voltaren) 25 mg BID PO Last administered on 05/05/19 22:17; Start 05/04/19 at 23:00 Duloxetine HCl (Cymbalta) 60 mg BID PO Last administered on 05/05/19 22:17; Start 05/05/19 at 09:00 Budesonide (Pulmicort) 0.5 mg RTBID NEB Last administered on 05/06/19 08:10; Start 05/05/19 at 08:00 Cetirizine HCl (ZyrTEC) 10 mg DAILY PO Last administered on 05/05/19 09:28; Start 05/05/19 at 09:00 Meclizine HCl (Antivert) 25 mg PRN TID PRN PO DIZZINESS; Start 05/04/19 at 22:30 Pantoprazole Sodium (Protonix) 40 mg QHS PO Last administered on 05/05/19 22:16; Start 05/04/19 at 23:00 Pregabalin (Lyrica) 100 mg TID PO Last administered on 05/05/19 22:18; Start 05/04/19 at 23:00 Spironolactone (Aldactone) 50 mg DAILY PO Last administered on 05/05/19 09:28; Start 05/05/19 at 09:00 Topiramate (Topamax) 50 mg BID PO Last administered on 05/05/19 22:17; Start 05/04/19 at 23:00 Potassium Chloride (Klor-Con) 40 meq 1X ONCE PO Last administered on 05/05/19 08:30; Start 05/05/19 at 09:00; Stop 05/05/19 at 09:01; Status DC Magnesium Sulfate/ Dextrose 100 ml @ 100 mls/hr 1X ONCE IV Last administered on 05/05/19 08:30; Start 05/05/19 at 09:00; Stop 05/05/19 at 09:59; Status DC Active Scripts Active Cyclobenzaprine Hcl 10 Mg Tablet 10 Mg PO TID Reported Tizanidine Hcl 4 Mg Tablet 2 Tab PO PRN Q8HRS PRN Omeprazole 40 Mg Capsule.dr 1 Cap PO HS Montelukast Sodium Tablet (Montelukast Sodium) 10 Mg Tablet 1 Tab PO HS Topiramate 50 Mg Tablet 1 Tab PO BID Trazodone Hcl 300 Mg Tablet 1 Tab PO QHS Sucralfate 1 Gm Tablet 1 Gm PO BID Albuterol Sulfate Neb Soln (Albuterol Sulfate) 0.63 Mg/3 Ml Vial.neb 0.63 Mg NEB PRN Q4HRS PRN Carvedilol (Carvedilol) 3.125 Mg Tablet 1 Tab PO BID Lyrica (Pregabalin) 100 Mg Capsule 1 Cap PO TID Loratadine 10 Mg Tablet 1 Tab PO DAILY Flovent 110MCG Hfa (Fluticasone Propionate) 12 Gm Aer.w.adap 2 Puff IH BID Zipsor (Diclofenac Potassium) 25 Mg Capsule 25 Mg PO BID Restasis (Cyclosporine) 1 Each Droperette 1 Drop EACHEYE BID Cymbalta (Duloxetine Hcl) 60 Mg Capsule.dr 1 Cap PO BID Meclizine Hcl 25 Mg Tablet 1 Tab PO PRN TID Ondansetron Odt (Ondansetron) 4 Mg Tab.rapdis 1 Tab PO PRN Q6HRS PRN Meloxicam 15 Mg Tablet 1 Tab PO DAILY Spironolactone 50 Mg Tablet 1 Tab PO DAILY Vitals/I & O Vital Sign - Last 24 Hours 05/05/19 05/05/19 05/05/19 05/05/19 11:00 11:05 11:10 15:00 Temp 98.1 98.3 98.1 98.3 Pulse 54 53 70 52 Resp 18 18 B/P (MAP) 121/64 (83) 130/90 (103) 130/92 (105) 137/73 (94) Pulse Ox 98 97 O2 Delivery Room Air Room Air 05/05/19 05/05/19 05/05/19 05/05/19 19:36 20:16 21:44 21:46 Temp 98.1 98.1 Pulse 58 Resp 16 B/P (MAP) 131/80 (97) Pulse Ox 99 97 97 O2 Delivery Room Air Room Air Room Air Room Air 05/05/19 05/06/19 05/06/19 22:25 02:55 08:11 Temp 98.0 97.9 98.0 97.9 Pulse 63 58 Resp 16 18 B/P (MAP) 117/68 (84) 123/80 (94) Pulse Ox 96 98 97 O2 Delivery Room Air Room Air Room Air Intake and Output 05/05/19 05/05/19 05/06/19 15:00 23:00 07:00 Intake Total 340 ml 1050 ml 350 ml Output Total 500 ml 500 ml 600 ml Balance -160 ml 550 ml -250 ml BAUDILIO MCCONNELL MD May 06, 2019 08:16
[2019-05-06] MEDS: CETIRIZINE HCL 10 MG TABLET. PO SCH (08:56)
[2019-05-06] MEDS: DICLOFENAC SODIUM 25 MG TABLET.DR PO SCH (08:56)
[2019-05-06] MEDS: SUCRALFATE 1 GM TABLET. PO SCH (08:57)
[2019-05-06] MEDS: PREGABALIN 50 MG CAPSULE PO SCH ×2 (08:57→14:04)
[2019-05-06] MEDS: DULoxetine HCL 30 MG CAPSULE.DR PO SCH (08:57)
[2019-05-06] MEDS: CYCLOBENZAPRINE 10 MG TABLET. PO SCH ×2 (08:57→14:04)
[2019-05-06] MEDS: TOPIRAMATE 25 MG TABLET. PO SCH (08:58)
[2019-05-06] MEDS: SPIRONOLACTONE 25 MG TABLET PO SCH (08:58)
[2019-05-06] MEDS: cycloSPORINE 0.05% OPHTH DROPERETTE. OU SCH (09:00)
[2019-05-06] MEDS ORDERED: FLU VAX QS 2019-20 (36MOS+)/PF 0.5 ML SYRINGE. VAX IM ONE (10:00)
[2019-05-06 11:13] VITALS: BP 122/65
--- NOTE | 2019-05-06 14:29 | PDOC3 ---
Discharge Summary Visit Information Date of Admission: May 04, 2019 Date of Discharge: May 06, 2019 Admitting Diagnosis: Symptomatic bradycardia Final Diagnosis Problems Medical Problems: (1) Chest pain Status: Acute (2) Dizziness Status: Acute (3) Fibromyalgia Status: Chronic (4) HTN (hypertension) Status: Chronic (5) Palpitations Status: Acute (6) Pre-syncope Status: Acute (7) Symptomatic bradycardia Status: Acute (8) Weakness Status: Acute Brief Hospital Course Allergies Allergies Coded Allergies Type Severity Reaction Last Updated Verified Iodinated Contrast Media Allergy Intermediate "turned red all over" 01/30/16 Yes Sulfa (Sulfonamide Antibiotics) Allergy Intermediate 01/30/16 Yes fexofenadine Allergy Intermediate 05/04/19 Yes Vital Signs Vital Signs Date Time Temp Pulse Resp B/P (MAP) Pulse Ox O2 Delivery O2 Flow Rate FiO2 05/06/19 11:13 98.2 62 18 122/65 (84) 97 Room Air 98.2 Lab Results Laboratory Tests Test 05/05/19 03:35 05/05/19 15:20 05/06/19 06:25 White Blood Count 4.8 x10^3/uL (4.0-11.0) Hemoglobin 11.8 g/dL (12.0-15.5) Hematocrit 36.0 % (36.0-47.0) Platelet Count 167 x10^3/uL (140-400) Prothrombin Time 13.2 SEC (11.7-14.0) Prothromb Time International Ratio 1.0 (0.8-1.1) Sodium Level 145 mmol/L (136-145) 141 mmol/L (136-145) Potassium Level 3.6 mmol/L (3.5-5.1) 4.0 mmol/L (3.5-5.1) Chloride Level 112 mmol/L (98-107) 108 mmol/L (98-107) Carbon Dioxide Level 23 mmol/L (21-32) 24 mmol/L (21-32) Anion Gap 10 (6-14) 9 (6-14) Blood Urea Nitrogen 16 mg/dL (7-20) 13 mg/dL (7-20) Creatinine 0.6 mg/dL (0.6-1.0) 0.7 mg/dL (0.6-1.0) Estimated GFR (Cockcroft-Gault) 110.2 92.2 Glucose Level 77 mg/dL (70-99) 81 mg/dL (70-99) Calcium Level 8.2 mg/dL (8.5-10.1) 8.4 mg/dL (8.5-10.1) Magnesium Level 1.9 mg/dL (1.8-2.4) 2.0 mg/dL (1.8-2.4) Troponin I Quantitative < 0.017 ng/mL (0.000-0.055) Thyroid Stimulating Hormone (TSH) 2.454 uIU/mL (0.358-3.74) Erythrocyte Sedimentation Rate 5 (0-25) C-Reactive Protein, Quantitative < 0.5 mg/L (0-3.3) Rheumatoid Factor <10.0 IU/mL (0.0-13.9) Laboratory Tests Test 05/05/19 15:20 05/06/19 06:25 Erythrocyte Sedimentation Rate 5 (0-25) C-Reactive Protein, Quantitative < 0.5 mg/L (0-3.3) Rheumatoid Factor <10.0 IU/mL (0.0-13.9) Sodium Level 141 mmol/L (136-145) Potassium Level 4.0 mmol/L (3.5-5.1) Chloride Level 108 mmol/L (98-107) Carbon Dioxide Level 24 mmol/L (21-32) Anion Gap 9 (6-14) Blood Urea Nitrogen 13 mg/dL (7-20) Creatinine 0.7 mg/dL (0.6-1.0) Estimated GFR (Cockcroft-Gault) 92.2 Glucose Level 81 mg/dL (70-99) Calcium Level 8.4 mg/dL (8.5-10.1) Magnesium Level 2.0 mg/dL (1.8-2.4) Brief Hospital Course Ms Whitman is a 43-year-old female w/ PMHx Fibromyalgia?, rosacea, valvular heart disease and tachyarrhythmia who presents with dizziness and lightheadedness while at work. Patient works in [employer] a [place] business when she began feeling dizzy lightheaded when standing and walking. She felt tingling all extremities nauseated and as though she would pass out. Symptoms lasted upwards of an hour prior to contacting EMS. On EMS arrival, the patient was noted to be bradycardic with heart rate the mid 40s. Patient states she had a similar episode 2 days ago which lasted proximally 1 hour. Patient did not seek medical attention at that time. On ED arrival, the patient's heart rate and cerebral ranging from the 30s to the 90s. Patient's currently on low dose of Coreg which she is been on for approximately the past 2 years. No recent illnesses. Denies fever chills, chest pain, abdominal pain. No vomiting or diarrhea. 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 EKG: Sinus bradycardia, rate 50s. Chest x-ray: No acute cardiopulmonary disease Seen by cardiology, stopped her carvedilol and recommended to back off on lyrica, antihistamines, and muscle relaxants. After holding meds her HR normalized. She was able to ambulate well. Has plans for cardiac event monitor outpatient A/P: Symptomatic bradycardia - reason for admission. Holding her coreg. Will monitor on telemetry. Echo. Cardiology following Palpitations - pre-existing Dizziness - likely multifactorial from medications as well as bradycardia Presyncope - Multifactorial, possibly 2/2 bradycardia Prolonged QTc 514 - will keep on telemetry, avoid QT prolonging agents HTN - controlled Hx of Migraine Chest pain - unlikely ACS. Recent Coronary CT unremarkable. ?Fibromyalgia - on medications with no improvement. 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 Her rash is impressive as well as her other symptoms, based on age should have testing to r/o SLE - negative CRP and sed rate, negative RF, SLE labs pending at time of d/c Weakness - will ambulate Echo - The left ventricular systolic function is normal. The Ejection Fraction is 55-60%. There is normal LV segmental wall motion. Trace tricuspid regurgitation with an estimated PAP of 30 mmHg. There is no evidence of significant pericardial effusion. Greater than 30 minutes spent on d/c Discharge Information Condition at Discharge: Improved Follow Up: Weeks (1) Disposition/Orders: D/C to Home Scheduled Cyclosporine (Restasis) 1 Each Droperette, 1 DROP EACHEYE BID, #60 Ref 3 (Reported) Entered as Reported by: LUKE BELTRAN on 01/30/162105 Last Action: Continued on 05/04/192223 by Bon Jansen Diclofenac Potassium (Zipsor) 25 Mg Capsule, 25 MG PO BID, (Reported) Entered as Reported by: LUKE BELTRAN on 01/30/162105 Last Action: Converted on 05/04/192223 by Bon Jansen Duloxetine Hcl (Cymbalta) 60 Mg Capsule.dr, 1 CAP PO BID, #90 Ref 3 (Reported) Entered as Reported by: LUKE BELTRAN on 01/30/162105 Last Action: Converted on 05/04/192223 by Bon Jansen Fluticasone Propionate (Flovent 110MCG Hfa) 12 Gm Aer.w.adap, 2 PUFF IH BID, #1 Ref 2 (Reported) Entered as Reported by: LUKE BELTRAN on 01/30/162105 Last Action: Converted on 05/04/192223 by Bon Jansen Loratadine (Loratadine) 10 Mg Tablet, 1 TAB PO DAILY, #30 Ref 5 (Reported) Entered as Reported by: LUKE BELTRAN on 01/30/162105 Last Action: Converted on 05/04/192223 by Bon Jansen Meclizine Hcl (Meclizine Hcl) 25 Mg Tablet, 1 TAB PO PRN TID, #30 (Reported) Entered as Reported by: LUKE BELTRAN on 01/30/162105 Last Action: Converted on 05/04/192223 by Bon Jansen Meloxicam (Meloxicam) 15 Mg Tablet, 1 TAB PO DAILY, #30 Ref 2 (Reported) Entered as Reported by: LUKE BELTRAN on 01/30/162105 Montelukast Sodium (Montelukast Sodium Tablet ) 10 Mg Tablet, 1 TAB PO HS, #30 Ref 5 (Reported) Entered as Reported by: LUKE BELTRAN on 01/30/162106 Last Action: Continued on 05/04/192224 by Bon Jansen Omeprazole (Omeprazole) 40 Mg Capsule.dr, 1 CAP PO HS, #30 Ref 3 (Reported) Entered as Reported by: LUKE BELTRAN on 01/30/162106 Last Action: Converted on 05/04/192224 by Bon Jansen Pregabalin (Lyrica) 100 Mg Capsule, 1 CAP PO TID, #90 Ref 2 (Reported) Entered as Reported by: LUKE BELTRAN on 01/30/162105 Last Action: Converted on 05/04/192223 by Bon Jansen Spironolactone (Spironolactone) 50 Mg Tablet, 1 TAB PO DAILY, #30 Ref 5 (Reported) Entered as Reported by: LUKE BELTRAN on 01/30/162105 Last Action: Converted on 05/04/192223 by Bon Jansen Sucralfate (Sucralfate) 1 Gm Tablet, 1 GM PO BID, (Reported) Entered as Reported by: LUKE BELTRAN on 01/30/162105 Last Action: Continued on 05/04/192223 by Bon Jansen Topiramate (Topiramate) 50 Mg Tablet, 1 TAB PO BID, #60 Ref 1 (Reported) Entered as Reported by: LUKE BELTRAN on 01/30/162106 Last Action: Converted on 05/04/192223 by Bon Jansen Trazodone Hcl (Trazodone Hcl) 300 Mg Tablet, 1 TAB PO QHS, #30 Ref 1 (Reported) Entered as Reported by: LUKE BELTRAN on 01/30/162105 Scheduled PRN Albuterol Sulfate (Albuterol Sulfate Neb Soln) 0.63 Mg/3 Ml Vial.neb, 0.63 MG NEB PRN Q4HRS PRN for SHORTNESS OF BREATH, Ref 0 (Reported) Entered as Reported by: LUKE BELTRAN on 01/30/162105 Last Action: Converted on 05/04/192223 by Bon Jansen Ondansetron (Ondansetron Odt) 4 Mg Tab.rapdis, 1 TAB PO PRN Q6HRS PRN for NAUSEA, #16 (Reported) Entered as Reported by: LUKE BELTRAN on 01/30/162105 Tizanidine Hcl (Tizanidine Hcl) 4 Mg Tablet, 2 TAB PO PRN Q8HRS PRN for MUSCLE SPASMS, #60 (Reported) Entered as Reported by: Bon Jansen on 05/04/192131 Last Action: New Order on 05/04/192131 by Bon Jansen Discontinued Medications Carvedilol (Carvedilol ) 3.125 Mg Tablet, 1 TAB PO BID, #60 Ref 3 (Reported) Entered as Reported by: LUKE BELTRAN on 01/30/162105 Cyclobenzaprine Hcl (Cyclobenzaprine Hcl) 10 Mg Tablet, 10 MG PO TID, #20 Prescribed by: JOSE ROBERTO JULES APRN on 09/04/16 1415 Last Action: Continued on 05/04/192224 by BAUDILIO Aaron MD May 06, 2019 14:29
--- NOTE | 2019-05-06 15:11 | NUR ---
Discharge Note: NICK ZHENG [address] [place] [address] Discharge instructions and discharge home medications reviewed with Patient and a copy given. All questions have been answered and understanding verbalized. The following instructions and handouts were given: Event monitoring Discontinued IV line Patient discharged to home with self care via private vehicle
[2019-05-07 12:10] LABS: ANTI-DS DNA <1 IU/mL (0-9); RNP ANTIBODY <0.2 AI (0.0-0.9)
[2019-05-07 16:10] LABS: ANA INTERP Negative (.)
== END 2019-05-06 15:00 | disposition home or self-care (01) | DRG 309 ==
LOC: 2 NORTH 20:25
PROVIDERS: ADMIT Internal Medicine; ATTEND Internal Medicine
DX: R00.1 Bradycardia, unspecified (principal); Z68.41 Body mass index [BMI] 40.0-44.9, adult; R07.89 Other chest pain; I10 Essential (primary) hypertension; G47.33 Obstructive sleep apnea (adult) (pediatric); J44.9 Chronic obstructive pulmonary disease, unspecified; M79.7 Fibromyalgia; Z82.49 Family history of ischemic heart disease and other diseases of the circulatory system; Z98.84 Bariatric surgery status; Z90.710 Acquired absence of both cervix and uterus; E66.01 Morbid (severe) obesity due to excess calories; G43.909 Migraine, unspecified, not intractable, without status migrainosus; Z88.2 Allergy status to sulfonamides; Z88.8 Allergy status to other drugs, medicaments and biological substances
CPT/HCPCS: 36415; 80048; 83735; 84443; 84484; 85027; 85610; 85651; 86038; 86140; 86235; 86431; 87801; 93005; 93306; 94640; J2270; J3475; J7030; J7613; J7626; G0378

== ENCOUNTER → 2020-01-20 | Outpatient (CLI) | payer MEDICAID ==
[~2020-01-20] MED LIST changes: +MECL-75 PO; -MECL25TA3 PO; +TIZA4TAB2 PO
--- NOTE | 2020-01-20 12:18 | CARD ---
MR#: [id number] Date of Study: 01/20/2020 Ordering Physician: DENNISE TOURE, Referring Physician: DENNISE TOURE, Tech: APPROVED REPORT Indication: Syncope and arrhytmia Details: 42 y.o woman presented with recurrent syncope and palpitations/arrhythmias. Risks and benefits for a loop recorder were discussed with the patient and informed consent was obtained. The left parasternal area was prepped and draped in usual sterile fashion. 2% local lidocaine anesthe brittni was administered. A Biotronik loop recorder was placed in the subcutaneous space after an incisio n with a 11 blade scalpel and the incision was closed with one 2-0 suture and steristrips. <Conclusion> Successful placement of a biotronik loop recorder for recurrent syncope and palpitations. Signed by : Dennise Toure, Electronically Approved : 01/20/2020 12:17:44
== END ==
LOC: LINQ 10:55
PROVIDERS: ATTEND Internal Medicine Cardiovascular Disease
DX: Z45.09 Encounter for adjustment and management of other cardiac device (principal); R55 Syncope and collapse
CPT/HCPCS: 33285; C1764